=== PATIENT | male | born 1975 | race Caucasian/White ===

== ENCOUNTER 2016-09-23 01:49 | Emergency (ER) | payer BC, OTHER ==
[2016-09-23 04:02] VITALS: BP 148/86
== END 2016-09-23 04:02 | disposition home or self-care (01) ==
LOC: ED 01:49
DX: S41.111A Laceration without foreign body of right upper arm, initial encounter (principal); I10 Essential (primary) hypertension; E11.9 Type 2 diabetes mellitus without complications; Z88.8 Allergy status to other drugs, medicaments and biological substances; X58.XXXA Exposure to other specified factors, initial encounter; Y93.89 Activity, other specified; Y92.89 Other specified places as the place of occurrence of the external cause; Y99.8 Other external cause status

== ENCOUNTER 2018-02-02 13:12 | Inpatient (IN) | payer BC, OTHER ==
[~2018-02-02] VITALS: Ht 190.5 cm; Wt 144.4 kg
[2018-02-02 13:17] VITALS: Ht 190.5 cm; Wt 144.4 kg
[2018-02-02 14:17] LABS: BASOPHIL % 0.5 % (0-2); PLATELET COUNT 233 x10^3mcL (130-400); RED CELL DISTRIBUTION WIDTH 13.3 % (11.5-14.5)
[2018-02-02 14:35] LABS: CALCIUM 8.5 mg/dL (8.5-10.1); CARBON DIOXIDE 29.2 mmol/L (21-32); CHLORIDE SERUM 98 mmol/L (98-107); CREATININE SERUM 0.9 mg/dL (0.7-1.3); GFR1 > 60 mL/min; GLUCOSE SERUM 297 mg/dL (74-106); SODIUM SERUM 136 mmol/L (136-145)
[2018-02-02 14:40] LABS: ALKALINE PHOSPHATASE 55 U/L (46-116); ALT/SGPT 26 U/L (16-63); AST/SGOT 8 U/L (15-37); BILIRUBIN TOTAL 0.2 mg/dL (0.20-1.00); TOTAL PROTEIN, SERUM 6.8 g/dL (6.4-8.2)
[2018-02-02 14:41] LABS: ALBUMIN 3.2 g/dL (3.4-5.0)
[2018-02-02] MEDS ORDERED: RISPERDAL (16:33)
[2018-02-02] MEDS ORDERED: DEPAKOTE ER500 MG PO (16:33)
[2018-02-02] MEDS ORDERED: PROZ20 PO (16:34)
[2018-02-02] MEDS ORDERED: TRAZODONE50 M1 PO (16:34)
[2018-02-02] MEDS ORDERED: LIPITOR20 MG PO (16:34)
[2018-02-02] MEDS ORDERED: METFORMIN HCL1000 MG PO (16:35)
[2018-02-02] MEDS ORDERED: XANAX XR1 M1 PO (16:35)
[2018-02-02] MEDS ORDERED: JANUVIA50 M1 (16:35)
[2018-02-02] MEDS ORDERED: PRINIVIL5 MG PO (16:36)
[2018-02-02] MEDS ORDERED: GLIPIZIDE10 M2 PO (16:36)
[2018-02-02 17:12] LABS: microscopic required? NO
[2018-02-02 17:24] LABS: MAGNESIUM 1.8 mg/dL (1.8-2.4); PHOSPHOROUS 3.1 mg/dL (2.5-4.9)
[2018-02-02 17:29] VITALS: BP 134/87
[2018-02-02 17:34] LABS: FREE T4 1.07 ng/dL (0.76-1.46); FREE THYROXINE INDEX 2.6 ug/dL (1.4-4.5); T3 TOTAL 1.15 ng/mL; T4(THYROXINE) 7.9 ug/dL (4.7-13.3)
[2018-02-02 17:49] LABS: UA SPECIFIC GRAVITY 1.015 (1.005-1.035); urine erythrocyte NEGATIVE (NEGATIVE)
[2018-02-02 17:53] LABS: CHOLESTEROL/HDL RATIO 2.8
[2018-02-02] MEDS ORDERED: CLARITIN10 MG PO (19:07)
[2018-02-02] MEDS ORDERED: BUSPIRONE HCL10 MG PO (19:08)
[2018-02-02] MEDS ORDERED: RISPERIDONE2 M1 PO (19:10)
[2018-02-02] MEDS ORDERED: ZANTAC 300300 MG PO (19:12)
[2018-02-02] MEDS ORDERED: ADVAIR DISKUS 51 AER IH (19:14)
[2018-02-02] MEDS ORDERED: FLUTICASON0.05 MG/Ac NS (19:15)
[2018-02-02 20:22] VITALS: BP 110/41
[2018-02-03 05:34] VITALS: BP 131/66
[2018-02-03 06:22] LABS: BASOPHIL % 0.8 % (0-2); PLATELET COUNT 221 x10^3mcL (130-400); RED CELL DISTRIBUTION WIDTH 13.4 % (11.5-14.5)
[2018-02-03 06:43] LABS: CARBON DIOXIDE 35.1 mmol/L (21-32); CHLORIDE SERUM 103 mmol/L (98-107); CREATININE SERUM 0.5 mg/dL (0.7-1.3); GFR1 > 60 mL/min; GLUCOSE SERUM 183 mg/dL (74-106); POTASSIUM SERUM 4.2 mmol/L (3.5-5.1); SODIUM SERUM 140 mmol/L (136-145)
[2018-02-03 08:35] VITALS: BP 131/73
[2018-02-03 12:56] VITALS: BP 130/72
[2018-02-03 14:19] VITALS: BP 130/72
== END 2018-02-03 15:26 | disposition home or self-care (01) | DRG 206 ==
LOC: ED 13:12 → DU 16:28
PROVIDERS: Emergency Medicine; Internal Medicine
DX: M94.0 Chondrocostal junction syndrome [Tietze] (principal); E44.0 Moderate protein-calorie malnutrition; F20.0 Paranoid schizophrenia; I24.9 Acute ischemic heart disease, unspecified; Z68.41 Body mass index [BMI] 40.0-44.9, adult; K21.9 Gastro-esophageal reflux disease without esophagitis; E11.65 Type 2 diabetes mellitus with hyperglycemia; E66.01 Morbid (severe) obesity due to excess calories; F17.210 Nicotine dependence, cigarettes, uncomplicated; F31.9 Bipolar disorder, unspecified; I10 Essential (primary) hypertension; F41.0 Panic disorder [episodic paroxysmal anxiety]; E78.5 Hyperlipidemia, unspecified; J45.909 Unspecified asthma, uncomplicated; Z79.899 Other long term (current) drug therapy; Z91.041 Radiographic dye allergy status; Z71.6 Tobacco abuse counseling
CPT/HCPCS: 83880; 84439; J7030; Q0092